=== PATIENT | male | born 1975 | race Caucasian/White ===

== ENCOUNTER 2017-04-21 09:19 | Outpatient (CLI) | payer OTHER ==
[2017-04-21 09:48] LABS: BASOPHILS % 1.2 (0.0-1.5); EOSINOPHILS % 3.8 % (0.0-6.8); MEAN CORPUSCULAR HEMOGLOBIN 30.1 pg (28.0-34.0); NEUTROPHILS # 3.2 # k/uL (1.4-7.7)
[2017-04-21 10:55] LABS: eGFR (African) > 60; eGFR (Non-African) > 60
== END 2017-04-21 09:20 ==
LOC: LAB 09:19
PROVIDERS: ATTEND Family Medicine
DX: Z00.00 Encounter for general adult medical examination without abnormal findings (principal)
CPT/HCPCS: 36415; 80053; 80061; 84443; 85025

== ENCOUNTER 2018-05-25 10:17 | Outpatient (CLI) | payer OTHER ==
[2018-05-25 11:02] LABS: eGFR (Non-African) > 60
== END 2018-05-25 10:19 ==
LOC: RT 10:17
PROVIDERS: ATTEND Family Medicine
DX: Z00.00 Encounter for general adult medical examination without abnormal findings (principal); I10 Essential (primary) hypertension
CPT/HCPCS: 36415; 80053; 80061

== ENCOUNTER 2019-02-13 10:29 | Outpatient (CLI) | payer OTHER ==
[2019-02-13 11:24] LABS: HDL 42 mg/dL (>40); eGFR (Non-African) > 60
== END 2019-02-13 10:34 ==
LOC: LAB 10:29
PROVIDERS: ATTEND Family Medicine
DX: Z13.220 Encounter for screening for lipoid disorders (principal)
CPT/HCPCS: 36415; 80053; 80061